=== PATIENT | male | born 1990 | race Caucasian/White ===

== ENCOUNTER 2016-08-19 07:56 | Emergency (ER) | payer OTHER ==
[~2016-08-19] VITALS: Ht 172.7 cm; Wt 54.0 kg
[2016-08-19 09:01] VITALS: BP 132/73
[2016-08-19] MEDS ORDERED: KETOROLAC TROMETHAMINE 60 MG/2 ML VIAL IM ONE (09:30)
[2016-08-19] MEDS ORDERED: CYCLOBENZAPRINE HCL 10 MG TABLET PO ONE (09:30)
== END 2016-08-19 09:32 | disposition home or self-care (01) ==
LOC: EMS 07:58
DX: M54.5 Low back pain (principal); M25.511 Pain in right shoulder; V49.40XA Driver injured in collision with unspecified motor vehicles in traffic accident, initial encounter; Y93.89 Activity, other specified; Y92.89 Other specified places as the place of occurrence of the external cause; Y99.8 Other external cause status
CPT/HCPCS: 96372; 99283; J1885